=== PATIENT | female | born 1995 | race Caucasian/White ===

== ENCOUNTER 2018-06-03 06:27 | Inpatient (IN) ==
[2018-06-03] MEDS ORDERED: PITOCIN ONE (06:35)
[2018-06-03] MEDS ORDERED: D5 1/2 NS 1L W PITOCIN 20 UNITS/L 20 UNITS/1,000 ML BAG IV ONE ×2 (06:35→18:09)
[2018-06-03] MEDS ORDERED: D5LR 1L W PITOCIN 10 UNITS/L 10 UNITS/1,000 ML BAG IV ONE (06:35)
[2018-06-03] MEDS ORDERED: D5 1/2 NS 1000 ML 1,000 ML IV ONE (06:35)
[2018-06-03] MEDS ORDERED: D5LR 1L W PITOCIN 10 UNITS/L 10 UNITS/1,000 ML BAG IV PRN (06:41)
[2018-06-03] MEDS ORDERED: PHENERGAN INJ 25 MG IV PRN ×2 (06:41→12:36)
[2018-06-03] MEDS ORDERED: PITOCIN IVP ONE (06:41)
[2018-06-03] MEDS ORDERED: MORPHINE SULFATE INJ 2 MG INJ IVP PRN (06:41)
[2018-06-03] MEDS ORDERED: NUBAIN INJ 200 MG VIAL MULTIDOSE IVP PRN (06:41)
[2018-06-03] MEDS ORDERED: D5 1/2 NS 1000 ML 1,000 ML IV SCH (06:41)
--- NOTE | 2018-06-03 07:12 | DR.OB ---
OB Quick Note - Assessment/Plan Assessment/Plan: L&D 06/03/18 at 7:00am S-No complaint. O-Afebrile,VSS WCE=193 with good LTV, +accel, no decel. CTX=mild, occasional CVX=2cm/50%/-1/VTX AROM with clear fluid. IUPC and FSE placed. A-IUP at 39 1/7 weeks for induction PIH Multiparity GERD Anxiety Anemia P-Begin pitocin induction F/U preeclamptic labs Anticipate
[2018-06-03 07:31] LABS: MAGNESIUM 1.5 mg/dL (1.7-2.9)
[2018-06-03 07:36] LABS: URIC ACID 5.7 mg/dL (2.6-6.0)
[2018-06-03] MEDS ORDERED: LR 1000 ML IV 1,000 ML IV ONE ×2 (08:24→16:44)
[2018-06-03] MEDS ORDERED: NAROPIN EPIDURAL 0.2% + FENTANYL 90MCG 60 ML EPI ONE (08:25)
[2018-06-03] MEDS ORDERED: FENTANYL INJ 100 mcg ONE (08:25)
[2018-06-03] MEDS ORDERED: ADRENALINE CHL INJ ONE (08:25)
[2018-06-03] MEDS ORDERED: POTASSIUM CHLORIDE IV NR ×3 (09:00)
[2018-06-03] MEDS ORDERED: D5 IV NR ×3 (09:00)
[2018-06-03] MEDS ORDERED: 1/2 NS IV NR ×3 (09:00)
[2018-06-03] MEDS ORDERED: [UNRECOGNIZED DRUG - OTHER] IV NR ×3 (09:00)
[2018-06-03] MEDS ORDERED: REGLAN INJ 10 MG VIAL ONE ×2 (10:41→16:01)
[2018-06-03] MEDS: REGLAN INJ 10 MG VIAL IVP PRN (10:43)
--- NOTE | 2018-06-03 12:44 | DR.OB ---
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 Head delivered over intact perineum. No nuchal cord. Nose and mouth bulb suctioned. Body delivered over intact perineum. Cord clamped x 2 and cut. Infant handed to attendant. Cord sent for gases. Placenta delivered spontaneously / intact / 3 vessel cord. No CVX / vaginal / perineal tears. Viable male infant, VTX/OA, wt=7'10" and 9/9, stable to NBN. [id number].
[2018-06-03] MEDS ORDERED: D5 1/2 NS 1000 ML 1,000 ML with PITOCIN 20 UNITS IV SCH ×2 (13:00)
[2018-06-03] MEDS ORDERED: ANCEF 1 GRAM IV PREMIX* 1 G/50 ML BAG IV ONE (13:24)
[2018-06-03] MEDS ORDERED: ZOFRAN INJ 4 MG VIAL ONE ×2 (15:30→16:01)
[2018-06-03] MEDS ORDERED: SUPRANE IN ONE ×2 (15:30→16:01)
[2018-06-03] MEDS ORDERED: DIPRIVAN VIAL ONE ×2 (15:30→16:01)
[2018-06-03] MEDS ORDERED: VERSED ONE (16:01)
[2018-06-03] MEDS ORDERED: XYLOCAINE 2% and EPINEPHRINE 1:100,000 ONE (16:47)
[2018-06-03] MEDS: DILAUDID INJ IVP PRN ×3 (17:48→18:17)
[2018-06-03] MEDS ORDERED: DILAUDID INJ ONE ×2 (17:51→18:08)
[2018-06-03] MEDS ORDERED: REGLAN INJ 10 MG VIAL IVP PRN (17:52)
[2018-06-03] MEDS ORDERED: ZOFRAN INJ 4 MG VIAL IVP PRN (17:52)
[2018-06-03] MEDS ORDERED: BENADRYL INJ 50 MG VIAL IVP PRN (17:52)
[2018-06-03] MEDS ORDERED: PHENERGAN INJ 25 MG IVP PRN (17:52)
[2018-06-03] MEDS ORDERED: MILK OF MAGNESIA PO PRN ×2 (18:24)
[2018-06-03] MEDS ORDERED: AMBIEN PO PRN ×2 (18:24)
[2018-06-03] MEDS ORDERED: ADACEL or BOOSTRIX TDaP VACCINE IM ONE (18:24)
[2018-06-03] MEDS ORDERED: MYLICON TAB 80 MG CHEW PO PRN (18:24)
[2018-06-03] MEDS ORDERED: DERMOPLAST SPRAY TOP PRN (18:24)
[2018-06-03] MEDS ORDERED: COLACE CAP 100 MG PO SCH (21:00)
[2018-06-03] MEDS: ZANTAC PO SCH (21:28)
[2018-06-03] MEDS: MOTRIN TAB 800 MG PO PRN (21:29)
[2018-06-04] MEDS: PERCOCET TAB 5/325 MG PO PRN ×2 (02:06→10:05)
[2018-06-04] MEDS: REGLAN INJ 10 MG VIAL IVP PRN (02:38)
[2018-06-04 05:03] LABS: HEMATOCRIT 21.3 % (36.0-47.0); HEMOGLOBIN 7.1 g/dL (12.0-16.0)
[2018-06-04] MEDS: MOTRIN TAB 800 MG PO PRN (06:31)
[2018-06-04] MEDS ORDERED: K-DUR TAB 20 MEQ PO PRN (07:24)
[2018-06-04] MEDS ORDERED: MICRO K EXTEN CAP 10 MEQ PO PRN (07:24)
[2018-06-04] MEDS ORDERED: POTASSIUM CHLORIDE LIQ 20 MEQ UDC PO PRN (07:24)
[2018-06-04] MEDS ORDERED: KLOR-CON PO PRN (07:24)
[2018-06-04 08:14] LABS: MAGNESIUM 1.6 mg/dL (1.7-2.9)
[2018-06-04] MEDS ORDERED: MAG-OX TAB ONE (08:36)
[2018-06-04] MEDS: ZANTAC PO SCH (08:44)
[2018-06-04] MEDS ORDERED: PRENATAL PLUS PO SCH (09:00)
[2018-06-04] MEDS ORDERED: ZOLOFT PO SCH (09:00)
[2018-06-04 11:56] VITALS: BP 163/102
[2018-06-04] MEDS ORDERED: BACTROBAN CREAM TOP SCH (14:00)
[2018-06-04] MEDS ORDERED: MAG-OX TAB PO SCH (17:00)
== END 2018-06-04 14:35 | disposition home or self-care (01) | DRG 798 ==
LOC: LD 06:27 → MED/SURG 17:24
PROVIDERS: ADMIT Specialist; ATTEND Specialist
DX: Z3A.39 39 weeks gestation of pregnancy; O99.343 Other mental disorders complicating pregnancy, third trimester; O99.613 Diseases of the digestive system complicating pregnancy, third trimester; O13.3 Gestational [pregnancy-induced] hypertension without significant proteinuria, third trimester; D50.8 Other iron deficiency anemias; Z37.0 Single live birth; Z30.2 Encounter for sterilization; O99.013 Anemia complicating pregnancy, third trimester
CPT/HCPCS: 36415; 59409; 80048; 80307; 81001; 83615; 83735; 84132; 84450; 84460; 84550; 85014; 85018; 85025; 85384; 85610; 85730; 86592; 86850; 86900; 86901; 87086; A4216; A4222; S0197; G0434; J0171; J0690; J1170; J2001; J2250; J2405; J2590; J2704; J2765; J3010; J3475; J3480; J3490; J7120; S5010